=== PATIENT | male | born 1945 | race Caucasian/White ===

== ENCOUNTER 2017-05-17 08:59 | Inpatient (IN) | payer OTHER ==
[2017-05-17] MEDS ORDERED: LABETALOL HCL 5 MG/ML 20 ML MDV IVP ONE (09:05)
[2017-05-17] MEDS ORDERED: LABETALOL HCL 5 MG/ML 20 ML MDV ONE (09:11)
--- NOTE | 2017-05-17 09:12 | CPEKG ---
Heart Rate: 59 RR Interval: 1017 P-R Interval: 156 QRSD Interval: 96 QT Interval: 436 QTC Interval: 432 P Preston: 80 QRS Preston: 57 T Wave Preston: 11 EKG Severity - OTHERWISE NORMAL ECG - EKG Impression: SINUS RHYTHM EKG Impression: ATRIAL PREMATURE COMPLEX Electronically Signed By: Quang Parekh 17-May-2017 14:56:02
[2017-05-17] MEDS ORDERED: IOPAMIDOL (ISOVUE 370) 100 ML BTL IV ONE (09:14)
--- NOTE | 2017-05-17 09:23 | EDPHY ---
H & P Stated Complaint: Slurrd speech, poss stroke. Time Seen by Provider: 05/17/17 09:03 - Personal History Current Tetanus Diphtheria and Acellular Pertussis (TDAP): Unsure - Medical/Surgical History Hx Asthma: No Hx Chronic Respiratory Disease: No Hx Diabetes: No Hx Cardiac Disease: No Hx Renal Disease: No Hx Cirrhosis: No Hx Alcoholism: No Hx HIV/AIDS: No Hx Splenectomy or Spleen Trauma: No Other PMH: HTN. Constitutional: Initial Vital Signs Temperature (C) 36.6 C 05/17/17 09:00 Heart Rate 63 05/17/17 09:00 Respiratory Rate 18 05/17/17 09:00 Blood Pressure 178/92 H 05/17/17 09:00 O2 Sat (%) 97 05/17/17 09:00 O2 Delivery Mode Room Air Allergies/Adverse Reactions: Penicillins Allergy (Verified 05/17/17 10:32) Unknown Home Medications: Medication Instructions Recorded NK [No Known Home Meds] 05/17/17 Medical Decision Making - Diagnostics Imaging Results: Imaging Impressions Head CT 05/17/17 09:11 Impression: 1. 4 mm punctate area of increased density in the white matter of right frontal lobe which could represent a small focus of intracranial hemorrhage or calcification. 2. Sequela from old lacunar infarct in the right periventricular white matter in the right parietal lobe and in the left anterior limb of the internal capsule. 3. No findings to suggest acute infarct. Results discussed with Dr. Quang Parekh at 0955 hours on 17 May 2017. Chest X-Ray 05/17/17 09:14 Impression: Negative. Head CTA 05/17/17 09:14 Impression: Variant anatomy of the [place]. No evidence for acute thrombus or flow significant stenosis. CT Angiogram Neck With IV Contrast History: Ataxia. Stroke alert. Technique: 0.75 mm images were obtained of the neck post intravenous contrast with 85 mL of Isovue-370 contrast. Multiplanar and 3-D evaluation was performed at an independent workstation. Radiation dose reduction technique was utilized. Findings: Normal branching of the great vessels from the aortic arch. There is evidence of atherosclerotic change at the origin of the great vessels without flow significant stenosis. Calcified atherosclerotic plaque is seen at both carotid bulbs extending to both proximal internal carotid arteries with approximately 50% stenosis on the left and less than 50% stenosis on the right. Both internal carotid arteries are tortuous. Mild atherosclerotic plaque is also seen in the distal left internal carotid artery which is not flow significant. Both vertebral arteries are patent with the right being dominant. There is approximately 50% stenosis at the origin of the right vertebral artery but no other significant stenosis and no findings for dissection. Impression: Calcified atherosclerotic plaque at both carotid bulbs and proximal internal carotid arteries with mild 50% or less stenosis. There is also a mild 50% stenosis at the origin of the right vertebral artery which is otherwise widely patent. Results discussed with Dr. Quang Parekh at 0955 hours on 17 May 2017. Neck CTA 05/17/17 09:14 Impression: Variant anatomy of the [place]. No evidence for acute thrombus or flow significant stenosis. CT Angiogram Neck With IV Contrast History: Ataxia. Stroke alert. Technique: 0.75 mm images were obtained of the neck post intravenous contrast with 85 mL of Isovue-370 contrast. Multiplanar and 3-D evaluation was performed at an independent workstation. Radiation dose reduction technique was utilized. Findings: Normal branching of the great vessels from the aortic arch. There is evidence of atherosclerotic change at the origin of the great vessels without flow significant stenosis. Calcified atherosclerotic plaque is seen at both carotid bulbs extending to both proximal internal carotid arteries with approximately 50% stenosis on the left and less than 50% stenosis on the right. Both internal carotid arteries are tortuous. Mild atherosclerotic plaque is also seen in the distal left internal carotid artery which is not flow significant. Both vertebral arteries are patent with the right being dominant. There is approximately 50% stenosis at the origin of the right vertebral artery but no other significant stenosis and no findings for dissection. Impression: Calcified atherosclerotic plaque at both carotid bulbs and proximal internal carotid arteries with mild 50% or less stenosis. There is also a mild 50% stenosis at the origin of the right vertebral artery which is otherwise widely patent. Results discussed with Dr. Quang Parekh at 0955 hours on 17 May 2017. Imaging: Discussed imaging studies w/ call center analyst Radiologist, I viewed and interpreted images myself ED Course/Re-evaluation: CHIEF COMPLAINT: Double vision, headache, difficulty balancing HISTORY OF PRESENT ILLNESS: The patient is a 71 y/o male complaining of a headache, difficulty balancing, and double vision since 05:00, 4 hours ago. The other day he noticed his balance began to worsen. He was awake at 03:00, but felt normal. 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 It is unsure if he had slurred speech before work. He is also complaining of waxing and waning numbness of his right arm. Denies shortness of breath, REVIEW OF SYSTEMS: A 10 point review of systems was performed and is negative with the exception of the elements mentioned in the history of present illness. PHYSICAL EXAM: HR, BP, O2 Sat, RR. Temp noted General Appearance: Alert, well hydrated, appropriate, and non-toxic appearing. Head: Atraumatic without scalp tenderness or obvious injury Eyes: Diplopia, right eye more than left. Pupils equal, round, reactive to light and accommodation, EOMI, no trauma, no injection. Ears: Clear bilaterally, no perforation, normal landmarks Nose: Atraumatic, no rhinorrhea, clear. Throat: Mucus membranes moist. Neck: Supple, non-tender, no lymphadenopathy. Respiratory: No retractions, no distress, no wheezes, and no accessory muscle use. Lungs are clear to auscultation bilaterally. Cardiovascular: Regular rate and rhythm, no murmurs, rubs, or gallops. Good capillary refill all extremities. Gastrointestinal: Abdomen is soft, non-tender, non-distended, no masses, no rebound, no guarding, no peritoneal signs. Musculoskeletal: Normal active ROM of all extremities, atraumatic. Neurological: Alert, appropriate, and interactive. The patient has an abnormal cerebellar exam. His [id number] and gait are abnormal. Slow speech and difficulty finding words. Skin: No rashes, good turgor, no nodules on palpation. PAST MEDICAL HISTORY: Hypertension PAST SURGICAL HISTORY: Denies SOCIAL HISTORY: , lives in [place], denies alcohol DIAGNOSTICS/PROCEDURES/CRITICAL CARE TIME: The 12 lead EKG was interpreted by myself as sinus rhythm with a rate of 59. See hard copy and/or "tracemaster" electronic copy for interpretation. Head CT: Minor hemorrhage or calcification in the frontal lobe I spent a total of 30 minutes of critical care time including but not limited to obtaining history, performing a physical exam, ordering interventions and the bedside monitoring of those interventions, collecting and interpreting tests and discussion with consultants but not including time spent performing procedures. DIFFERENTIAL DIAGNOSIS: The differential diagnosis for the patient's neurologic deficits included but was not limited to peripheral causes, central causes including CVA, TIA, electrolyte abnormalities and dehydration, cardiogenic causes, atypical causes like migraine syndrome. MEDICAL DECISION MAKING: The patient is a 71 y/o male presenting with diplopia, slow speech, and an abnormal cerebellar exam. Due to his hypertension and neurological deficits he will be treated for a stroke and hypertension emergency. Plan on labs, EKG, chest x-ray, and head and neck CT. 0906: Stroke alert called by myself 0910: BP: 221/113 0912: 20mg IV Labetalol administered 0915: Consulted with Dr. Sawyer from [facility]. He is also noticing cerebellar deficits. Dr. Oliveira and I believe the patient is outside of the TPA window. We will consider him for intervention if he is a candidate. 0949: BP: 134/76 0958: Spoke with Dr. Hewitt, radiologist, he reports there is either a minor hemorrhage or calcification in the frontal lobe. Plan on brain MRI. 1013: Consulted with Dr. Sawyer, he agrees with me that the patient does not need to be transferred for his symptoms. He will need to be admitted for observation. I have not anticoagulated the patient as I do not know if there is a clot or calcification in his frontal lobe. 1015: Consulted with hospitalist service, accepts admission of this patient for a cerebellar stroke. 1023: 500mg IV Thiamine administered Reassessed patient and discussed plan for admission, patient is comfortable with this plan. 1200: Spoke with radiologist, he reports the patient has showered some emboli into the left side of his brain. There is a calcification in his frontal brain, not a hemorrhage. We will fully anticoagulate the patient with a Heparin bolus and drip. - Data Points Laboratory Results: Laboratory Results 05/17/17 09:18 05/17/17 09:18 05/17/17 05/17/17 05/17/17 09:18 09:18 09:18 WBC 5.86 10^3/uL 10^3/uL (3.80-9.50) RBC 4.83 10^6/uL 10^6/uL (4.40-6.38) Hgb 16.0 g/dL g/dL (13.7-17.5) Hct 46.0 % % (40.0-51.0) MCV 95.2 fL fL (81.5-99.8) MCH 33.1 pg pg (27.9-34.1) MCHC 34.8 g/dL g/dL (32.4-36.7) RDW 13.6 % % (11.5-15.2) Plt Count 191 10^3/uL 10^3/uL (150-400) MPV 10.2 fL fL (8.7-11.7) Neut % (Auto) 68.6 % % (39.3-74.2) Lymph % (Auto) 16.9 % % (15.0-45.0) [place] % (Auto) 10.2 % % (4.5-13.0) Eos % (Auto) 3.1 % % (0.6-7.6) Baso % (Auto) 0.7 % % (0.3-1.7) Nucleat RBC Rel Count 0.0 % % (0.0-0.2) Absolute Neuts (auto) 4.02 10^3/uL 10^3/uL (1.70-6.50) Absolute Lymphs (auto) 0.99 10^3/uL L 10^3/uL (1.00-3.00) Absolute Monos (auto) 0.60 10^3/uL 10^3/uL (0.30-0.80) Absolute Eos (auto) 0.18 10^3/uL 10^3/uL (0.03-0.40) Absolute Basos (auto) 0.04 10^3/uL 10^3/uL (0.02-0.10) Absolute Nucleated RBC 0.00 10^3/uL 10^3/uL (0-0.01) Immature Gran % 0.5 % % (0.0-1.1) Immature Gran # 0.03 10^3/uL 10^3/uL (0.00-0.10) PT 13.3 SEC SEC (12.0-15.0) INR 1.02 (0.83-1.16) APTT 27.0 SEC SEC (23.0-38.0) Sodium 141 mEq/L mEq/L (134-144) Potassium 4.6 mEq/L mEq/L (3.5-5.2) Chloride 101 mEq/L mEq/L (97-110) Carbon Dioxide 25 mEq/l mEq/l (22-31) Anion Gap 15 mEq/L mEq/L (8-16) BUN 16 mg/dL mg/dL (7-23) Creatinine 1.1 mg/dL mg/dL (0.7-1.3) Estimated GFR > 60 Glucose 104 mg/dL H mg/dL (70-100) Calcium 9.5 mg/dL mg/dL (8.5-10.4) Medications Given: Discontinued Medications Thiamine HCl 500 mg/ Sodium (Chloride) 105 mls @ 210 mls/hr IV ONCE ONE Stop: 05/17/17 10:23 Last Admin: 05/17/17 11:54 Dose: 105 mls Labetalol HCl (Trandate Injection) 20 mg IVP EDNOW ONE Stop: 05/17/17 09:06 Last Admin: 05/17/17 09:05 Dose: 20 mg Departure - Departure Disposition: [facility] Inpatient Acute Clinical Impression: Acute ischemic stroke, Cerebellar stroke Condition: Fair Report Scribed for: Quang Parekh Report Scribed by: Leonora Howell Date of Report: 05/17/17 Time of Report: 09:15
[2017-05-17 09:27] LABS: % IMMATURE GRANULYOCYTES 0.5 % (0.0-1.1); ABSOLUTE IMMATURE GRANULOCYTES 0.03 10^3/uL (0.00-0.10); ADD DIFF? NO; ADD MORPH? NO; ADD SCAN? NO; ATYPICAL LYMPHOCYTE FLAG 20 (0-99); FRAGMENT RBC FLAG 0 (0-99); LEFT SHIFT FLG 0 (0-99); LIPEMIA HEMOLYSIS FLAG 90 (0-99); MEAN CELL HEMOGLOBIN 33.1 pg (27.9-34.1); MEAN CELL HEMOGLOBIN CONCENTR. 34.8 g/dL (32.4-36.7); MEAN CELL VOLUME 95.2 fL (81.5-99.8); MEAN PLATELET VOLUME 10.2 fL (8.7-11.7); PLATELET CLUMPS FLAG 0 (0-99); PLATELET COUNT 191 10^3/uL (150-400); RED BLOOD CELL COUNT 4.83 10^6/uL (4.40-6.38); RED CELL DISTRIBUTION WIDTH 13.6 % (11.5-15.2)
[2017-05-17 09:36] LABS: INR 1.02 (0.83-1.16); PROTIME(PATIENT) 13.3 SEC (12.0-15.0)
[2017-05-17 09:47] LABS: ANION GAP 15 mEq/L (8-16); CALCIUM 9.5 mg/dL (8.5-10.4); CARBON DIOXIDE 25 mEq/l (22-31); CHLORIDE 101 mEq/L (97-110); CREATININE 1.1 mg/dL (0.7-1.3); GLOMERULAR FILTRATION RATE > 60; GLUCOSE 104 mg/dL (70-100); POTASSIUM 4.6 mEq/L (3.5-5.2); SODIUM 141 mEq/L (134-144)
[2017-05-17] MEDS ORDERED: THIAMINE HCL 500 MG in NS 100 ML IV ONE (09:54)
--- NOTE | 2017-05-17 10:14 | PDCONSULT ---
Pantomimist Note: [facility] Note Demographics Consult Type Acute Stroke First Name Cresenico Last Name Ashkan Date of 1945 Age: 71 Gender Male Referring Provider Dr Parekh Time of initial page (): 05/17/2017 09:11 Time of return call (): 05/17/2017 09:12 Time Ready to Initiate Telemed Consult (): 05/17/2017 09:13 HPI Chief Complaint: ataxia Additional History (Free Text): 71 year old man presents with Ataxia and vision difficulty. He wakes up at 3 a.m. stopped at the gas station for morning coffee at about 5 a.m. He felt headache and some vision disturbance then. 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 The patient describes intermittent balance issues at home over prior weeks. Denies drinking since November of this year. Exam Vitals: vital signs reviewed Mental Status: awake, alert + oriented x 3, follows commands Language: no aphasia Cranial Nerves extra ocular movements intact, no facial droop, normal facial sensation, dilpopia - horizontal in left gaze by description. No nystagmus or dysconjugate gaze seen. Motor: normal strength, normal bulk, no drift Sensory: normal sensation Cerebellar: leans right when attempting to sit without support on cart. Not ataxia on one side or other. NIHSS Time (): 05/17/2017 09:16 LOC 1a: 0 = Alert; keenly responsive LOC 1b: 0 = Answers both questions correctly LOC Commands: 0 = Performs both tasks correctly Best Gaze: 1 = Partial gaze palsy; gaze is abnormal in one or both eyes, but forced deviation or total gaze paresis is not present Visual: 0 = No visual loss Facial Palsy 0 = Normal symmetrical movements Motor Arm L: 0 = No drift; limb holds 90 (or 45) degrees for full 10 seconds Motor Arm R: 0 = No drift; limb holds 90 (or 45) degrees for full 10 seconds Motor Leg L: 0 = No drift; leg holds 30-degree position for full 5 seconds Motor Leg R: 0 = No drift; leg holds 30-degree position for full 5 seconds Limb Ataxia 1 = Present in one limb Sensory: 0 = Normal; no sensory loss Best Language: 0 = No aphasia; normal Dysarthria: 0 = Normal Extinction + Inattention: 0 = No abnormality NIHSS: [address]: no bleed CTA Head no large vessel occlusion CTA Neck patent vessels Assessment: Acute Ischemic Stroke, Diplopia, ataxia of probable acute onset this AM at 5 am. He is at the 4.5 hour cutoff for tPA at this time. Unable to CT and mix tPa in time to make the cutoff for treatment. Plan Labs B 12, HgbA1c, Lipid Panel, TSH Imaging MRI brain without Diagnostic test echocardiogram with bubble Therapy/Eval NPO until cleared by swallow evaluation, PT/OT, Speech/Swallow therapy consult VTE Prophylaxis SCD Other LDL goal less than 70, telemetry monitoring, I have discussed my recommendations with the referring provider Additional Recommendations: Thiamine 500 mg IV now Disposition admit
[2017-05-17] MEDS ORDERED: ACETAMINOPHEN 325 MG TAB PO PRN (10:38)
[2017-05-17] MEDS ORDERED: ONDANSETRON DISINTEGRATING 4 MG TAB PO PRN (10:38)
[2017-05-17] MEDS ORDERED: ONDANSETRON 4 MG/2 ML VIAL IVP PRN (10:38)
--- NOTE | 2017-05-17 11:41 | ASMTCMCOM ---
CM Note CM Note Notes: Patient presented from work to the ED for headache, vision changes and slurred speech. Patient admitted for acute ischemic stroke, cerebellar stroke. Patient had noticed for the past week that he was "off balance" while walking. Patient lives with , Kimberly, in [facility]. Exact DC needs unknown at this time. CM to follow. Date Signed: 05/17/2017 11:41 AM Electronically Signed By:Marce Cope RN
[2017-05-17] MEDS ORDERED: HEPARIN/DEXTROSE 500 ML IV ONE (12:03)
[2017-05-17] MEDS ORDERED: HEPARIN 10,000 UNIT/10 ML MDV IVP ONE (12:03)
--- NOTE | 2017-05-17 12:18 | GHP ---
[f rep st] HISTORY AND PHYSICAL DATE OF ADMISSION: 05/17/2017 CHIEF COMPLAINT: Dizziness. HISTORY OF PRESENT ILLNESS: This is a 71-year-old male, who reports having 3 weeks of preceding symp toms of dizziness/gait instability. The patient reports that he first had a sensation of this approx imately 3 weeks ago and that it would intermittently come and go. Then, in the course of the last we ek or so, it has been more persistent. He denies the sensation of the room spinning feeling but inst ead is having difficulty placing himself or objects and space. Example: A few days ago, he was unab le to put his coffee cup in the microwave on the first try. The patient developed a more profound se nse of gait instability and dizziness today at approximately 5 a.m. and then developed double vision. This prompted him coming into the emergency department for evaluation. In the ED, he reports some of these symptoms have improved a bit. He denies any numbness or tingling . Denies any difficulty swallowing. Denies any headache. Denies any chest pain, shortness of breat h or palpitations. Denies changes in his bowel habits, difficulty urinating, blood in his stools or his urine. PAST MEDICAL HISTORY: 1. Hypertension. 2. Tobacco abuse. 3. History of heavy alcohol use. Reports no alcohol consumption for many months. SOCIAL HISTORY: Positive for a pack per day tobacco. Alcohol as outlined above. Denies any illicit drugs or marijuana. FAMILY HISTORY: Positive for stroke in his mother. ADVANCED DIRECTIVES: The patient describes wanting to be do not resuscitate. REVIEW OF SYSTEMS: A 10-point review of systems is negative with the exception of that reported in t he HPI. PHYSICAL EXAMINATION: VITAL SIGNS: Blood pressure is 134/76, heart rate 60, respiratory rate 16, 94 % on room air. GENERAL: This is a middle-aged male in no acute distress. HEENT: Notable for dry m ucous membranes. Eye exam is negative for any icterus. CARDIAC: Patient is regular rate and rhythm . PULMONARY: He is clear to auscultation bilaterally. GASTROINTESTINAL: Positive bowel sounds. A BDOMEN: Soft and nontender. MUSCULOSKELETAL: Negative for any lower extremity edema. SKIN: Exam is negative for any rashes. NEUROLOGIC: The patient's cranial nerves 2-12 [address] Stre ngth is intact 5/5 bilaterally of the upper and lower extremities. Sensation is intact throughout. The patient has diminished visual acuity of the right eye and is still describing double vision. His gait is unstable. LABORATORY DATA: White count 5.8, creatinine 1.1. Noncontrast CT of the head shows no findings of acute infarction. Radiology comments on a 4 mm punct ate area in the white matter of the right frontal lobe that may be hemorrhage or calcification. EKG, which I personally reviewed and interpreted, shows sinus rhythm with no acute changes. ASSESSMENT AND PLAN: This is a 71-year-old male, presenting with gait instability and double vision. 1. Suspected acute cerebrovascular accident based on the patient's symptoms. It sounds as if he has had stuttering symptoms for the past several weeks, likely localizing posteriorly. Will admit the p atient on telemetry for neurologic observation. Initiate aspirin, as well as statin therapy. Have o rdered CTA, echo and MRI. I discussed the case with Dr. Will from Neurology; he will consult. I have ordered a hemoglobin A1c, as well as a lipid panel. Will order PT, OT and speech evaluation as well . 2. Hypertension. Can continue patient's home medications once reconciled. Presented with very high blood pressures which have settled out without treatment. Will continue to follow. 3. Alcohol history. It sounds as if the patient may have had extensive use in the past. We are emp irically giving IV thiamin until we can clarify his history. 4. Nicotine dependence. I have written for a nicotine patch. Patient most certainly will need exte nsive counseling on the importance of cessation going forward in the setting of what we suspect to be stroke. 5. Prophylaxis with Lovenox, once cleared by Neurology based on CT imaging. 6. Diet, once cleared by speech can have a cardiac diet. 7. Disposition: I expect in less than 2 midnights if the patient's neurologic exam remains stable a nd he completes his appropriate observation period. I have discussed the case with Dr. Will from [facility]. He will evaluate the patient in consultation. /[id number]/MODL
[2017-05-17 12:51] LABS: HEMOGLOBIN A1C 5.8 % (4.0-6.0)
--- NOTE | 2017-05-17 14:05 | ECHO ---
[email or web address] [address] Main: [phone] Fax: Transthoracic Echocardiogram Name: RADHA TAN MR#: [id number] Study Date: 05/17/2017 Study Time: 01:19 PM Date of : 1945 Age: 71 year(s) Height: 172.7 cm (68 in.) Weight: 72.58 kg (160 lb.) BSA: 1.86 m2 Gender: Male Examination: Echo Indication: Ischemic stroke Image Quality: Contrast: Requested by: Diane Harris BP: 142 mmHg/77 mmHg Heart Rate: Rhythm: Indication: Ischemic stroke Procedure Staff Machine Pecan Picker: Genesis Leija Reading Physician: Flash Hu Requesting Provider: Conclusions: Normal size left ventricle. No LV hypertrophy. Normal global systolic LV function. EF is 67 %. No regional wall motion abnormality. Normal diastolic LV function. An agitated saline study was performed and was negative for intracardiac shunting. Trivial mitral valve regurgitation. Trivial tricuspid valve regurgitation. No pericardial effusion. Measurements: Chambers Valvular Assessment AV/MV Valvular Assessment TV/PV Normal Normal Normal Name Value Range Name Value Range Name Value Range Ao Jamila (MM): 3.2 cm (2.2 cm-3.7 AV Vmax: 1.28 m/s (1 m/s-1.7 TR Vmax: 2.09 mm/s ( - ) cm) m/s) TR PGmax: 17 mmHg ( - ) IVSd (2D): 1.0 cm (0.6 cm-1.1 AV maxP mmHg ( - ) syst. PAP: 22 mmHg ( - ) cm) MV E Vmax: 0.65 m/s ( - ) LVDd (2D): 4.1 cm (4.2 cm-5.9 MV A Vmax: 0.70 m/s ( - ) cm) MV E/A: 0.93 ( - ) LVDs (2D): 2.2 cm (2.1 cm-4 cm) LVPWd (2D): 1.0 cm (0.6 cm-1 cm) LVEF (MOD4): 67 % (>=55 %) Continued Measurements: Chambers Valvular Assessment AV/MV Valvular Assessment TV/PV Patient: RADHA TAN Study Date: 05/17/2017 Page 1 of 2 01:19 PM Name Value Name Value Name Value LADs: 4.0 cm MV E' Septal: 0.07 m/s CVP (est.): 5 mmHg LADs Lon.7 cm MV E/E' Septal: 8.90 LA Area: 17.2 cm2 MV E/E' Lateral: 7.00 Additional Vessels Name Value Ao Ascendin.0 cm Findings: Left Ventricle: Normal size left ventricle. No LV hypertrophy. Normal global systolic LV function. EF is 67 %. No regional wall motion abnormality. Normal diastolic LV function. Right Ventricle: Normal size right ventricle. Left Atrium: The left atrium is normal in size. An agitated saline study was performed and was negative for intracardiac shunting. Right Atrium: The right atrium is normal in size. Mitral Valve: The mitral valve is normal in appearance and function. Trivial mitral valve regurgitation. Aortic Valve: The aortic valve is normal in appearance and function. Tricuspid Valve: The tricuspid valve is normal in appearance and function. Trivial tricuspid valve regurgitation. Pulmonic Valve: The pulmonic valve is normal in appearance and function. Aorta: The aorta is normal. Pericardium: No pericardial effusion. (No Signature Object) Patient: RADHA TAN Study Date: 05/17/2017 Page 2 of 2 01:19 PM [id number]
--- NOTE | 2017-05-17 14:29 | ASMTCMCOM ---
CM Note CM Note Notes: [facility] consult has been requested. PT has seen and recommending IR, OT pending. Message left for Edyta at IR. Date Signed: 05/17/2017 02:28 PM Electronically Signed By:BERNICE Yu
--- NOTE | 2017-05-17 14:54 | GCON ---
[f rep st] CONSULTATION NEUROLOGY CONSULTATION REFERRING PHYSICIAN: Diane Harris MD CHIEF COMPLAINT: Stroke. 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 He has smoked 1 pack a day for the last 50 years and continues to smoke cigarettes 1 pack daily. He states he has not consumed any alcohol since November of 2016. He states he was not an alcoholic, but stopped drinking to be a good role model for their daughter. The patient was just taking a single blood pressure agent, name unknown to me at this time, and a baby aspirin daily prior to the events leading to this admission. He began having symptoms around 2 weeks ago of decreased balance. He then may have had some right upper extremity numbness 2 or 3 days ago. He states his vision may have been worse in the right field over the last 2 or 3 days and finally he had binocular double vision this morning which led his electrician supervisor substation to bring him to the emergency department due to his symptoms and his balance issues. The patient had a stroke alert and was deemed not to be a candidate for tPA based on the duration of his symptoms as noted above. Please see the telemedicine consult note for details. He had a CT angio of the head and neck. The angio of the head showed variant anatomy of the [place] of [place] without evidence of acute thrombus. CTA of the neck showed calcified atherosclerotic plaque at both carotid bulbs and proximal internal carotid arteries, maximal on the left. There was also some stenosis of the vertebral artery on the right. There has been no atrial fibrillation on telemetry nor does he have a family history of atrial fibrillation or personal history of atrial fibrillation. REVIEW OF SYSTEMS: A 10-point review of systems was done and only pertinent to the HPI. PAST MEDICAL HISTORY: Hypertension, tobacco abuse. SOCIAL HISTORY: He has smoked a pack per day for the last 50 years. He stopped drinking alcohol in November. FAMILY HISTORY: Stroke in his mother. PHYSICAL EXAMINATION: VITAL SIGNS: Blood pressure 134/76, heart rate 60, respirations 16. GENERAL: Pleasant gentleman, in no acute distress. HIGHER MENTAL FUNCTION: The patient is awake and alert. He names 5/5. Follows commands 5/5, repeats 5/5. His speech does have an unusual characteristic in which he appears to hesitate and speaks slowly. His confirms this is a lifelong trait of the patient thinking before he is speaking. No objective abnormalities on language exam. CRANIAL NERVE EXAM: The patient has a mild right hemifield visual field cut. Extraocular movements are grossly normal. Though, he does report binocular diplopia which is extinguished by closing either the right or left eye. Facial sensation and strength are intact. Tongue is midline. On motor exam, the patient has some mild right hemiparesis in the right arm and right leg. Sensory exam is intact. Coordination shows some mild appendicular ataxia in the right upper extremity. TESTING: EKG shows sinus rhythm and on telemetry, he has been in sinus rhythm. IMPRESSION AND PLAN: 1. Multiple, punctate left hemisphere acute strokes. The patient's clinical history suggests he has been having stuttering emboli to the left hemisphere as his symptomatology began 2 weeks ago with progressive symptoms, all localizing to the left hemisphere. His CTA of the head and neck did not show any acute large vessel occlusion. Moreover, the patient's posterior circulation on the left does NOT appear to be coming off the carotid artery ( circulation). Therefore, it is somewhat unusual to have all of the multiple strokes in the left hemisphere, which typically would be caused by a carotid lesion. There is some carotid plaquing bilaterally, maximal left. The other possibility is a cardioembolic phenomenon with all embolic debris going to the left hemisphere due to laminar flow. I have consulted Dr. Blake Scott to review his angiography and comment on whether any surgical intervention would be indicated based on the plaque morphology on the left. I have switched him from baby aspirin to Plavix 75 mg daily. We discussed potential risks, benefits, and alternatives of Plavix. The patient has already been started on statin therapy which is indicated. PT, OT and speech have been consulted. Fasting lipids have been ordered. In addition, he will have echocardiography and continue ECG telemetry to screen for any paroxysmal atrial fibrillation. Ultimately, if there is no atrial fibrillation seen here in the hospital, he will need outpatient cardiology evaluation for prolonged rhythm monitoring. Finally, we did discuss his general vascular comorbidities including hypertension and his nicotine dependence. I have counseled him and encouraged him at length to stop smoking. He has not drank any alcohol since November of 2016 , and is very forthcoming with this history. He states he was not a heavy drinker previously. Certainly, we will closely monitor. We will follow up on the above. Thank you for this consultation. /[id number]/MODL MTDD
[2017-05-17] MEDS: CLOPIDOGREL BISULFATE 75 MG TAB PO SCH (14:55)
[2017-05-17] MEDS: THIAMINE HCL 500 MG in NS 100 ML IV SCH ×2 (14:56→22:12)
[2017-05-17] MEDS: ATORVASTATIN CALCIUM 20 MG TAB PO SCH (14:56)
[2017-05-17] MEDS: NICOTINE 21 MG/24 HR PATCH TD SCH (15:54)
[2017-05-18 05:19] LABS: CHOLESTEROL 139 mg/dL (140-220); CHOLESTEROL/HDL RATIO 4.79 RATIO (1.00-4.97); HIGH DENSITY LIPOPROTEIN 29 mg/dL (40-65); LDL/HDL RATIO 3.03 RATIO (1.00-3.64); LOW DENSITY LIPOPROTEIN 88 mg/dL (80-100); NON-HIGH DENSITY LIPOPROTEIN 110 mg/dL (90-129); TRIGLYCERIDE 114 mg/dL (40-150); VERY LOW DENSITY LIPOPROTEINS 22 mg/dL (8-25)
[2017-05-18] MEDS: THIAMINE HCL 500 MG in NS 100 ML IV SCH (05:55)
[2017-05-18] MEDS ORDERED: ASPIRIN 325 MG TAB PO SCH (09:00)
[2017-05-18] MEDS ORDERED: ENOXAPARIN 40 MG/0.4 ML SYR SC SCH (09:00)
[2017-05-18] MEDS: CLOPIDOGREL BISULFATE 75 MG TAB PO SCH (09:51)
[2017-05-18] MEDS: ATORVASTATIN CALCIUM 20 MG TAB PO SCH (09:51)
[2017-05-18] MEDS: NICOTINE 21 MG/24 HR PATCH TD SCH (09:53)
--- NOTE | 2017-05-18 11:03 | HOSPPROG ---
Hospitalist Progress Note Assessment/Plan: # Acute CVA - patient presented with balance problems, diplopia and transient UE weakness- most deficits improved but not resolved MRI brain (personally reviewed and interpreted) multiple frontal and occipital left sided infarcts- HBA1c 5.8 ECHO (reviewed) no PFO, EF normal- valves normal - cont plavix - cont statin - Dr. Scott consulted to review angiography - cont PT/OT - inpatient rehab consulted # HTN - SBP 100-120's no indication for any treatment currently- oxygen saturations 95% on RA # Tobacco abuse - discussed importance of cessation at length - pt does not want patch currently - patch prn # proph - lovenox #diet - cardiac # dipos- > 2MN as requires rehab for safe disposition post - stroke I have discussed the case with Dr. Will- we have asked Dr. Scott to review angiography for recs. Subjective: double vision improved Objective: Vital Signs Temp Pulse Resp BP Pulse Ox 36.9 C 60 18 131/70 H 91 L 05/18/17 07:37 05/18/17 08:00 05/18/17 07:37 05/18/17 08:00 05/18/17 08:00 05/17/17 05/18/17 05/19/17 05:59 05:59 05:59 Intake Total 1390 500 Output Total 1275 250 Balance 115 250 PT 13.3 SEC (12.0-15.0) 05/17/17 09:18 INR 1.02 (0.83-1.16) 05/17/17 09:18 - Physical Exam Constitutional: no apparent distress Eyes: anicteric sclera Ears, Nose, Mouth, Throat: moist mucous membranes Cardiovascular: regular rate and rhythym Respiratory: no respiratory distress, no rales or rhonchi Gastrointestinal: normoactive bowel sounds Genitourinary: no bladder fullness Skin: warm Musculoskeletal: No asymmetric calves Neurologic: AAOx3, No facial droop Psychiatric: interacting appropriately Lymph, Heme, Immunologic: no cervical LAD ICD10 Worksheet Patient Problems: Problems Problem Status Onset Acute ischemic stroke Acute Cerebellar stroke Acute
[2017-05-18 12:05] VITALS: TEMP 98.2
--- NOTE | 2017-05-18 12:20 | PDMN ---
Medical Necessity Medical necessity: C/M review: Patient meets INPT criteira under MCG M-83 Stroke: ischemic; Acute ischemic CVA, balance problems, diplopia, transient upper extremity weakenss-most deficits improved but not resolved, MRI brain showed multiple frontal and occipital left sided infarcts, patient requires rehab post stroke for safe disposition, requiring planned General surgery consult to review CT angiogram head / neck, Inpt Rehab eval consult, ongoing cardiac monitoring, acute inpt PT/OT/ST, comorbid hypertension, tobacco abuse. anticipates > 2 MN LOS for ongoing med nec for eval and TX of above.
--- NOTE | 2017-05-18 12:21 | PDIAF ---
- Diagnosis Diagnosis: new CVA Code Status: Full Code - Medication Management Discharge Medications: Medications to Continue on Transfer Atorvastatin Calcium [Lipitor 20 mg (*)] 20 mg PO DAILY #30 tab 05/18/17 [Last Taken Unknown] Clopidogrel Bisulfate [Plavix (*)] 75 mg PO DAILY #30 tab 05/18/17 [Last Taken Unknown] Discharge Medications: Refer to the Discharge Home Medication list for PRN reason. - Orders Services needed: Home Care, Physical Therapy, Occupational Therapy Home Care Face to Face: I certify that this patient was under my care and that I had the required [id number] encounter meeting the encounter requirements on the discharge day. My findings support the fact that the patient is homebound as defined in Home Care Face to Face Continued: CMS Chapter 7 Medicare Benefits Manual 30.1.1 , The condition of the patient is such that there exists a normal inability to leave home and consequently, leaving home would require a considerable and taxing effort. Diet Recommendation: cardiac -low fat low salt - Follow Up Care Current Providers and Referrals: NONE *PRIMARY CARE P,. [Primary Care Provider] - Patrick Cary MD [Medical Doctor] - Soren Will MD [Medical Doctor] -
--- NOTE | 2017-05-18 12:24 | NEUROPROG ---
Assessment: 1. Cryptogenic multiple, small left hemisphere acute strokes 2. Carotid atherosclerosis The patient's echocardiogram showed a normal left atrial size. No intracardiac thrombus. No right to left shunting. No atrial fibrillation on telemetry. I discussed the angiography findings with general surgery. They agree there is no critical stenosis on the left carotid artery. We will obtain a carotid ultrasound and have him follow up with Dr. Blkae Scott as an outpatient. He will have a implanted loop recorder placed prior to discharge for cryptogenic stroke to screen for paroxysmal atrial fibrillation. He will follow -up with cardiology an outpatient regarding this. The patient was counseled on the device and, specifically, if we do detect paroxysmal atrial fibrillation that the plan would be to switch him from Plavix to oral anticoagulant - he is agreeable. On discharge, he should be on Plavix 75 mg daily plus statin daily. He was also counseled to stop smoking. Physical therapy does not feel he needs inpatient rehabilitation. He will have home/outpatient therapies. The patient will follow up with Neurology in 6-8 weeks to review all of the above. Subjective: Symptoms improving Objective: Vital Signs Temp Pulse Resp BP Pulse Ox 36.8 C 68 13 128/71 H 91 L 05/18/17 12:00 05/18/17 12:00 05/18/17 12:00 05/18/17 12:00 05/18/17 12:00 05/17/17 05/18/17 05/19/17 05:59 05:59 05:59 Intake Total 1390 500 Output Total 1275 250 Balance 115 250 PT 13.3 SEC (12.0-15.0) 05/17/17 09:18 INR 1.02 (0.83-1.16) 05/17/17 09:18 Awake and alert No aphasia Visual theodore are normal today, deficit resolved (minimal right hemifield blurriness detected yesterday) 40 total minutes floor time; this included reviewing studies, counseling the patient and his and coordination of care. Allergies/Adverse Reactions: Penicillins Allergy (Verified 05/17/17 10:32) Unknown
[2017-05-18] MEDS ORDERED: LIDOCAINE 1% 300 MG/30 ML SDV ONE (12:32)
--- NOTE | 2017-05-18 14:35 | ASMTCMCOM ---
CM Note CM Note Notes: MD determined that pt can DC home today with PT/OT/ST. Met with pt and to go over DC plan. HC chosen and alerted. Homebound explained. Date Signed: 05/18/2017 02:34 PM Electronically Signed By:Gianna Ingram LCSW
--- NOTE | 2017-05-18 14:58 | GDS ---
[f rep st] DISCHARGE SUMMARY DISCHARGE DIAGNOSES: Include: 1. Acute cerebral vascular accident. 2. Hypertension. 3. Tobacco abuse. HISTORY OF PRESENT ILLNESS: This is a 71-year-old male with a history of hypertension and tobacco de pendence, who presents with acute onset of diplopia and dizziness. For details of patient's initial presentation, please see the History and Physical dated 05/17/2017. CONSULTATIVE SERVICES: Include: 1. Neurology. 2. Cardiology. PROCEDURES: On 05/17/2017, patient had an MRI of the brain which showed multi focal areas in the lef t frontal and left occipital lobe suggestive of infarcts. On 05/18/2017, patient had a LINQ monitor placed by Cardiology. HOSPITAL COURSE BY ISSUE: 1. Acute CVA: Patient presented with diplopia and stable gait. Was found to have acute infarcts on the left in both the occipital and frontal lobes. The patient was seen by Neurology and initiated o n Plavix therapy. Imaging of the head and neck, was obtained, and patient will be seen in the outpat ient setting by Dr. Scott to discuss carotid anatomy and the potential need for intervention. Andrae patel had a LINQ monitor placed by Cardiology for monitoring of potential atrial fibrillation. Transthor acic echocardiogram obtained during this hospital stay was normal. No PFO was identified. No region al wall motion abnormalities or clots were identified. Patient was seen by PT/OT and cleared for jeffery e therapy. He has been asked to not drive or work for the next week while he continues to recover. He should then be seen in the outpatient setting by Neurology, cardiology, and General Surgery. 2. Tobacco dependence: Patient received extensive counseling about the importance of tobacco cessat ion moving forward. MEDICATIONS AT DISPOSITION: Please reference med rec printed on 05/18/2017. Patient has 2 medicatio ns: Plavix and Lipitor. PENDING STUDIES: At the time of this dictation, none. FOLLOWUP APPOINTMENTS: 1. With Dr. Will from Neurology in the next 2-4 weeks for his first post disposition followup. 2. In the next 2-[address] Scott to discuss carotid intervention, if indicated. 3. Dr. Cary for first device monitoring post disposition. TIME SPENT: I spent greater than 30 minutes in the planning and coordination of this discharge. /[id number]/MODL
--- NOTE | 2017-05-18 15:07 | EPPROC ---
Electrophysiology Procedure Note: Medtronic ILR implant Indication - Cryptogenic stroke Requesting physician - Dr. Soren Will Receiver - Ivan oBrrego RN Procedure - Medtronic LINQ ILR SN [id number] implanted in L 4th parasternal area using usual sterile technique under local anesthesia. 2 carlos and dressing applied. No complications. Patient instructed on use of device activator. Auto detect settings HR <30 bpm > 160 bpm pause >3 seconds or AFIB Patient was instructed by both Dr. Will and myself that if AFIB is detected, given that he has cryptogenic stroke, he will need lifelong anticoagulation. I would prefer he use a NOAC like Eliquis 5 mg BID or Pradaxa 150 mg BID. Risks of bleed d.w. him and his SO. Patient Problems: Problems Problem Status Onset Acute ischemic stroke Acute Cerebellar stroke Acute
[2017-05-18 16:02] VITALS: BP 139/79; PULSE 81; RESP 17; O2SAT 93
--- NOTE | 2017-05-22 12:21 | ASMTCMCOM ---
CM Note CM Note Notes: Received a call from [facility] on Saturday, 05/20. They are unable to see this patient as it is out of their service area. Spoke with patient's , Kimberly, to notify of above. She is agreeable to any home care that can see patient. Spoke with Kylah at [facility], information faxed. Kylah will follow-up with patient's PCP to get new home care orders and will then follow-up with patient and . Date Signed: 05/22/2017 12:21 PM Electronically Signed By:Katelin Cisneros RN
== END 2017-05-18 16:30 | disposition home or self-care (01) | DRG 42 ==
LOC: F3N 12:07 → OBSVTOIN 05-18 11:59
PROVIDERS: ADMIT Hospitalist; ATTEND Hospitalist
PROC: 0JH632Z Insertion of Monitoring Device into Chest Subcutaneous Tissue and Fascia, Percutaneous Approach (ICD-10-PCS; principal; 2017-05-18)
DX: I63.29 Cerebral infarction due to unspecified occlusion or stenosis of other precerebral arteries (principal); I10 Essential (primary) hypertension; F17.210 Nicotine dependence, cigarettes, uncomplicated
CPT/HCPCS: 92523-GN; 96374; 97116-GP; 97162-GP; 97166-GO; 97530-GP; C1764; G0378; G8978-GP-CJ; G8979-GP-CI; G8987-GO-CJ; G8988-GO-CI; G9165-GN-CH; G9166-GN-CH; G9167-GN-CH; J3411; J3490; Q9967